=== PATIENT | male | born 1940 | race Caucasian/White ===

== ENCOUNTER 2017-11-27 20:50 | Inpatient (IN) | payer MEDICARE, MEDICAID ==
[~2017-11-27] VITALS: Ht 167.6 cm; Wt 78.0 kg
[2017-11-27] MEDS ORDERED: SODIUM CHLORIDE 0.9% 1,000 ML IV ONE (21:30)
[2017-11-27] MEDS ORDERED: 0.9% SODIUM CHLORIDE 10 ML SYRINGE IVP PRN (21:30)
[2017-11-27] MEDS ORDERED: DIVA125SP PO (21:53)
[2017-11-27] MEDS ORDERED: FOLI1 PO (21:53)
[2017-11-27] MEDS ORDERED: POTA8TAB4 PO (21:53)
[2017-11-27] MEDS ORDERED: LISI-660 PO (21:53)
[2017-11-27] MEDS ORDERED: VITA1TAB22 PO (21:53)
[2017-11-27] MEDS ORDERED: BUME1TAB17 PO (21:53)
[2017-11-27] MEDS ORDERED: LEVO125 PO (21:53)
[2017-11-27] MEDS ORDERED: DSSL PO (21:53)
[2017-11-27] MEDS ORDERED: BISACODYL 10 MG RECTAL RECTAL SUPPOSITORY PR PRN (22:15)
[2017-11-27] MEDS ORDERED: ACETAMINOPHEN 325 MG TABLET PO PRN (22:15)
[2017-11-27] MEDS ORDERED: ALBUTEROL SULFATE 2.5 MG/0.5 ML NEB SOLUTION NEB PRN (22:15)
[2017-11-27] MEDS ORDERED: ONDANSETRON HCL 4 MG/2 ML VIAL IVP PRN (22:15)
[2017-11-27 23:22] LABS: BASOPHILS % (AUTO) 0.1 % (0.0-2.0); EOSINOPHILS % (AUTO) 0.1 % (1.0-6.0); HEMOGLOBIN 13.4 g/dL (13.5-17.5); LYMPHOCYTES # (AUTO) 0.9 K/uL (1.0-4.8); LYMPHOCYTES % (AUTO) 5.8 % (22.0-44.0); MEAN CORPUSCULAR HEMOGLOBIN 31.7 pg (26.0-34.0); MEAN CORPUSCULAR HGB CONC 34.3 G/dL (31.0-37.0); MEAN CORPUSCULAR VOLUME 92 fL (80-100); MONOCYTES % (AUTO) 12.7 % (2.0-9.0); NEUTROPHILS # (AUTO) 12.8 K/uL (1.8-7.7); NEUTROPHILS % (AUTO) 81.3 % (40.0-70.0); PLATELET COUNT (AUTO) 294 K/uL (150-450); RED BLOOD CELL COUNT(AUTO) 4.23 MIL/uL (4.50-5.90); RED CELL DISTRIBUTION WIDTH 14.1 % (11.5-14.5)
[2017-11-27 23:28] LABS: ANION GAP 6 mmol/L (8-16); CALCIUM, TOTAL 9.4 mg/dL (8.8-10.5); CARBON DIOXIDE 33 mmol/L (22-29); CHLORIDE 101 mmol/L (98-107); CREATININE 2.43 mg/dL (0.60-1.30); GLOMERULAR FILTR. RATE CALC 26 mL/min (>60); GLUCOSE,RANDOM 151 mg/dL (70-110); POTASSIUM 4.5 mmol/L (3.5-5.1); SODIUM SERUM 140 mmol/L (136-145); UREA NITROGEN, BLOOD 29 mg/dL (7-18)
[2017-11-27 23:29] LABS: PROTHROMBIN TIME 10.3 SEC (9.4-11.6)
[2017-11-27 23:36] LABS: APPEARANCE,URINE CLEAR (CLEAR); BILIRUBIN,URINE NEGATIVE (NEGATIVE); GLUCOSE, URINE (UA) NEGATIVE (NEGATIVE); KETONES,URINE NEGATIVE (NEGATIVE); LEUKOCYTE ESTERASE ,URINE NEGATIVE (NEGATIVE); NITRATE,URINE NEGATIVE (NEGATIVE); OCCULT BLOOD,URINE NEGATIVE (NEGATIVE); PROTEIN,URINE NEGATIVE (NEGATIVE)
[2017-11-27 23:37] LABS: LACTIC ACID 3.4 mmol/L (0.4-2.0)
[2017-11-27 23:52] LABS: ALANINE AMINOTRANSFERASE 25 U/L (12-78); ALBUMIN 3.8 g/dL (3.4-5.0); ALKALINE PHOSPHATASE 95 U/L (46-116); BILIRUBIN,TOTAL 0.7 mg/dL (0.1-1.0); CREATINE KINASE MB 2.7 ng/mL (0-5); CREATINE KINASE, TOTAL 117 U/L (39-308); THYROID STIMULATING HORMONE 3.06 uIU/mL (0.36-3.74); TOTAL PROTEIN, SERUM 8.5 g/dL (6.4-8.2)
[2017-11-27 23:56] LABS: B-TYPE NATRIURETIC PEPTIDE 33 pg/mL (0-100)
[2017-11-28] MEDS ORDERED: PIPERACILLIN/TAZO 3.375 GM/D5W 50 ML IV ONE
[2017-11-28 00:07] LABS: ASPARTATE AMINOTRANSFERASE 25 U/L (15-37)
[2017-11-28] MEDS ORDERED: SODIUM CHLORIDE 0.9% 500 ML IV ONE (00:15)
[2017-11-28 05:49] LABS: ALBUMIN 3.1 g/dL (3.4-5.0); BILIRUBIN,TOTAL 0.5 mg/dL (0.1-1.0); CALCIUM, TOTAL 8.6 mg/dL (8.8-10.5); CREATININE 2.59 mg/dL (0.60-1.30); POTASSIUM 5.1 mmol/L (3.5-5.1); TOTAL PROTEIN, SERUM 7.3 g/dL (6.4-8.2)
[2017-11-28 06:16] LABS: BASOPHILS % (AUTO) 0.8 % (0.0-2.0); EOSINOPHILS % (AUTO) 0.1 % (1.0-6.0); HEMATOCRIT 35.2 % (41-53); HEMOGLOBIN 12.1 g/dL (13.5-17.5); LYMPHOCYTES # (AUTO) 1.6 K/uL (1.0-4.8); LYMPHOCYTES % (AUTO) 11.2 % (22.0-44.0); MEAN CORPUSCULAR HEMOGLOBIN 31.7 pg (26.0-34.0); MEAN CORPUSCULAR HGB CONC 34.2 G/dL (31.0-37.0); MEAN CORPUSCULAR VOLUME 93 fL (80-100); MONOCYTES # (AUTO) 1.6 K/uL (0.1-1.0); MONOCYTES % (AUTO) 11.1 % (2.0-9.0); NEUTROPHILS # (AUTO) 11.1 K/uL (1.8-7.7); NEUTROPHILS % (AUTO) 76.8 % (40.0-70.0)
[2017-11-28] MEDS ORDERED: SODIUM CHLORIDE 0.9% 1,000 ML IV ONE ×2 (08:00)
[2017-11-28 08:28] VITALS: BP 93/64
[2017-11-28 08:28] LABS: PLATELET COUNT (AUTO) 204 K/uL (150-450)
[2017-11-28] MEDS: PANTOPRAZOLE SODIUM 40 MG/VIAL IVP SCH (09:50)
[2017-11-28] MEDS: HEPARIN SODIUM,PORCINE 5,000 UNITS/ML VIAL SQ SCH ×2 (09:50→20:25)
[2017-11-28 11:24] VITALS: BP 91/49
[2017-11-28 14:55] VITALS: BP 104/46
[2017-11-28 19:21] VITALS: BP 117/61
[2017-11-28 23:37] VITALS: BP 117/44
[2017-11-29] VITALS (7 sets, daily range): BP systolic 91–124; BP diastolic 50–66
[2017-11-29 07:20] LABS: BASOPHILS % (AUTO) 0.6 % (0.0-2.0); EOSINOPHILS % (AUTO) 0.9 % (1.0-6.0); HEMATOCRIT 29.8 % (41-53); HEMOGLOBIN 10.5 g/dL (13.5-17.5); MEAN CORPUSCULAR HEMOGLOBIN 32.2 pg (26.0-34.0); MEAN CORPUSCULAR VOLUME 92 fL (80-100); MONOCYTES # (AUTO) 0.7 K/uL (0.1-1.0); MONOCYTES % (AUTO) 9.2 % (2.0-9.0); NEUTROPHILS # (AUTO) 4.6 K/uL (1.8-7.7); NEUTROPHILS % (AUTO) 62.3 % (40.0-70.0); PLATELET COUNT (AUTO) 204 K/uL (150-450); RED BLOOD CELL COUNT(AUTO) 3.25 MIL/uL (4.50-5.90); RED CELL DISTRIBUTION WIDTH 14.1 % (11.5-14.5)
[2017-11-29 07:55] LABS: CALCIUM, TOTAL 8.5 mg/dL (8.8-10.5); CREATININE 1.49 mg/dL (0.60-1.30); POTASSIUM 3.7 mmol/L (3.5-5.1)
[2017-11-29] MEDS: HEPARIN SODIUM,PORCINE 5,000 UNITS/ML VIAL SQ SCH ×2 (09:12→20:38)
[2017-11-29] MEDS: PANTOPRAZOLE SODIUM 40 MG/VIAL IVP SCH (09:12)
[2017-11-29] MEDS ORDERED: SODIUM CHLORIDE 0.9% 1,000 ML IV ONE (12:52)
[2017-11-29] MEDS: MICONAZOLE NITRATE 2% 142 GM CREAM [BAZA] TP SCH ×2 (15:25→20:39)
[2017-11-29] MEDS: DEXTROSE 5%-0.45% SODIUM CHL 1,000 ML IV SCH (15:25)
[2017-11-30 04:35] VITALS: BP 116/58
[2017-11-30] MEDS: DEXTROSE 5%-0.45% SODIUM CHL 1,000 ML IV SCH ×2 (06:54→20:08)
[2017-11-30 07:16] VITALS: BP 91/34
[2017-11-30] MEDS: PANTOPRAZOLE SODIUM 40 MG/VIAL IVP SCH (08:02)
[2017-11-30] MEDS: HEPARIN SODIUM,PORCINE 5,000 UNITS/ML VIAL SQ SCH ×2 (08:02→20:07)
[2017-11-30] MEDS: MICONAZOLE NITRATE 2% 142 GM CREAM [BAZA] TP SCH ×2 (08:03→20:08)
[2017-11-30 11:11] VITALS: BP 99/54
[2017-11-30 16:04] VITALS: BP 130/65
[2017-11-30 19:43] VITALS: BP 138/59
[2017-11-30 23:00] VITALS: BP 123/61
[2017-12-01 04:36] VITALS: BP 122/59
[2017-12-01 07:03] VITALS: BP 110/62
[2017-12-01] MEDS: MICONAZOLE NITRATE 2% 142 GM CREAM [BAZA] TP SCH ×2 (08:28→20:15)
[2017-12-01] MEDS: HEPARIN SODIUM,PORCINE 5,000 UNITS/ML VIAL SQ SCH ×2 (08:28→20:14)
[2017-12-01] MEDS: PANTOPRAZOLE SODIUM 40 MG/VIAL IVP SCH (08:28)
[2017-12-01] MEDS: DEXTROSE 5%-0.45% SODIUM CHL 1,000 ML IV SCH ×2 (09:35→23:21)
[2017-12-01 11:14] VITALS: BP 136/84
[2017-12-01 15:22] VITALS: BP 149/68
[2017-12-01 19:19] VITALS: BP 143/86
[2017-12-01] MEDS ORDERED: SODIUM CHLORIDE 0.9% 500 ML IV ONE (19:47)
[2017-12-01 23:11] VITALS: BP 135/78
[2017-12-02 04:57] VITALS: BP 101/68
[2017-12-02 07:49] VITALS: BP 166/98
[2017-12-02] MEDS: PANTOPRAZOLE SODIUM 40 MG/VIAL IVP SCH (09:40)
[2017-12-02] MEDS: HEPARIN SODIUM,PORCINE 5,000 UNITS/ML VIAL SQ SCH (09:41)
[2017-12-02] MEDS: MICONAZOLE NITRATE 2% 142 GM CREAM [BAZA] TP SCH (09:56)
== END 2017-12-02 11:55 | DRG 871 ==
LOC: EMS 20:52 → 5S 11-28 03:32 → 4E 11-29 10:00
PROVIDERS: ADMIT Internal Medicine; ATTEND Internal Medicine
DX: A41.9 Sepsis, unspecified organism (principal); E43 Unspecified severe protein-calorie malnutrition; G93.41 Metabolic encephalopathy; N17.9 Acute kidney failure, unspecified; R62.7 Adult failure to thrive; F03.90 Unspecified dementia, unspecified severity, without behavioral disturbance, psychotic disturbance, mood disturbance, and anxiety; I10 Essential (primary) hypertension; S30.0XXA Contusion of lower back and pelvis, initial encounter; X58.XXXA Exposure to other specified factors, initial encounter; E03.9 Hypothyroidism, unspecified; R56.9 Unspecified convulsions; Z66 Do not resuscitate; R13.10 Dysphagia, unspecified; I45.10 Unspecified right bundle-branch block; Z86.73 Personal history of transient ischemic attack (TIA), and cerebral infarction without residual deficits; Z68.27 Body mass index [BMI] 27.0-27.9, adult; Y92.89 Other specified places as the place of occurrence of the external cause
CPT/HCPCS: 70450; 83605; 84145; 84443; 85032; 87040; 87081; 89055; 92610; 93005; 96374; 99285; C9113; J1644; J2543; J7030; J7040